=== PATIENT | male | born 1955 | race Caucasian/White ===

== ENCOUNTER 2020-01-30 11:57 | Outpatient (CLI) | payer MEDICARE, SELFPAY ==
--- NOTE | ~2020-01-30 | PE_ITS ---
EXAMINATION: PET skull to mid thigh DATE: 01/30/2020 13:48 INDICATION: Lung nodule TECHNIQUE: mCi of 18-fluorodeoxyglucose (18-FDG) was administered i.v. Low dose computed tomography ( CT) images were acquired from the base of the brain to the proximal thighs for attenuation correction and anatomic localization. Positron emission tomography (PET) images were acquired after injection. Images including fused PET/CT images were reconstructed in axial, coronal, and sagittal planes. Autom atic exposure control is employed as a dose reduction technique. COMPARISON: None FINDINGS: Head/neck: No hypermetabolic activity in the neck. No abnormality of the mucosal or parapharyngeal spaces. Thyro id gland is unremarkable. There is mucosal thickening of the maxillary sinuses. Mastoids are pneumati zed. Chest: There is a 1.6 cm left upper lobe mass, image 282, with an SUV value of 7.96, compatible with broncho genic carcinoma until proven otherwise. There is moderate emphysema. No endobronchial lesions. No tho racic lymphadenopathy. No significant pleural or pericardial effusion. Abdomen/pelvis/proximal thighs: There are calcified granulomas in the spleen. No hypermetabolic activity in the abdomen or pelvis. Th e liver, pancreas, adrenal glands and kidneys are unremarkable. There is atherosclerosis of the aorta without aneurysm. Nonobstructive bowel gas pattern. Bones/Soft tissues: No hypermetabolic activity in the bones or soft tissues. IMPRESSION: 1. Left upper lobe nodule measuring 1.6 cm with SUV value of 7.96, compatible with bronchogenic carci noma until proven otherwise. 2: Moderate emphysema. 3: Sinusitis, likely chronic. Reviewed, dictated and finalized at location A. IMPRESSION: 1. Left upper lobe nodule measuring 1.6 cm with SUV value of 7.96, compatible w ith bronchogenic carcinoma until proven otherwise. 2: Moderate emphysema. 3: Sinusitis, likely chronic.
[2020-01-30 12:26] LABS: Glucose Point of Care 88 (65-105)
== END 2020-01-30 11:58 | disposition home or self-care (01) ==
PROVIDERS: PCP Physician Assistant; Visit Provider Nurse Practitioner
DX: R91.1 Solitary pulmonary nodule (principal); J43.9 Emphysema, unspecified
CPT/HCPCS: 78815; A9552